=== PATIENT | male | born 1975 | race Caucasian/White ===

== ENCOUNTER 2022-02-03 20:40 | Emergency (ER) | payer OTHER ==
[~2022-02-03] VITALS: Ht 180.3 cm; Wt 118.0 kg
[2022-02-03] MEDS ORDERED: KETOROLAC 60MG/2ML VIAL IM ONE (23:15)
[2022-02-03] MEDS ORDERED: HYDROCODONE/ACETAMINOPHEN 5/325MG TABLET PO ONE (23:15)
[2022-02-03] MEDS ORDERED: MORPHINE SULFATE 10 MG/ML CPJ IM ONE (23:15)
[2022-02-04] MEDS ORDERED: IBUP-2028 MT ×3 (01:04→01:22)
[2022-02-04] MEDS ORDERED: TOPUD PO ×3 (01:04→01:22)
[2022-02-04] MEDS ORDERED: MORP15TA67 MT ×3 (01:04→01:22)
[2022-02-04 01:45] VITALS: BP 135/74
== END 2022-02-04 02:03 | disposition home or self-care (01) ==
LOC: ER 20:40
DX: S89.92XA Unspecified injury of left lower leg, initial encounter (principal); W18.39XA Other fall on same level, initial encounter; Y93.89 Activity, other specified; Y92.89 Other specified places as the place of occurrence of the external cause; Y99.8 Other external cause status
CPT/HCPCS: 73552; 73562; 73590; 96372; 99284; J1885; J2270; L1830